=== PATIENT | male | born 1960 | race Caucasian/White ===

== ENCOUNTER 2020-09-15 19:35 | Emergency (ER) | payer SELFPAY ==
[~2020-09-15] VITALS: Ht 190.5 cm; Wt 90.7 kg
[2020-09-15] MEDS ORDERED: AUGMENTIN 875-1 EACH PO (20:57)
[2020-09-15 21:25] VITALS: BP 112/64
== END 2020-09-15 21:45 | disposition home or self-care (01) ==
LOC: ER 19:58
DX: S91.312A Laceration without foreign body, left foot, initial encounter (principal)
CPT/HCPCS: 99284